=== PATIENT | female | born 1970 ===

== ENCOUNTER 2025-06-02 09:21 | Inpatient (IN) | payer OTHER ==
[~2025-06-02] VITALS: Ht 121.9 cm; Wt 72.6 kg
[2025-06-02 09:52] LABS: BASO % 1.0 % (0.1-1.2); EOS # 0.09 (0.04-0.54); EOS % 1.4 % (0.7-7.0); LYMPH # 2.00 (1.18-3.74); LYMPH % 32.1 % (19.3-53.1); MEAN PLATELET VOLUME 11.20 fl (9.4-12.4); MONO # 0.50 (0.24-0.82); MONO % 8.0 % (4.7-12.5); NEUT # 3.58 (1.56-6.13); NEUT % 57.3 % (34.0-71.1); RED CELL DISTRIBUTION WIDTH 13.4 % (11.6-14.4)
[2025-06-02 10:06] LABS: URINE APPEARANCE Clear; URINE BILIRRUBIN Negative (NEGATIVE); URINE BLOOD Negative; URINE COLOR Yellow; URINE GLUCOSE Negative (NEGATIVE); URINE KETONE Negative (NEGATIVE); URINE LEUKOCYTE Small; URINE NITRATE Negative; URINE PROTEIN Negative (NEGATIVE); URINE UROBILINOGEN 0.2 E.U./dl
[2025-06-02 10:08] LABS: URINE BACTERIA 29.9 uL (0.0-1933); URINE EPITHELIAL CELLS 3.6 uL (0.0-38.8); URINE RBC 4.6 uL (0.0-20.8); URINE WBC 8.1 uL (0.0-23.2)
[2025-06-02 10:33] LABS: INR 0.99
[2025-06-02 10:39] LABS: URINE CAST 0.00 uL (0.0-1.40)
[2025-06-02 10:44] LABS: ALT/SGPT 40.0 U/L (12-78); AST/SGOT 24.0 U/L (15-37); BILIRUBIN TOTAL 0.92 mg/dL (0.3-1.2); BUN CREA RATIO 11.0 (7.0-25.0); CREATININE SERUM 0.83 mg/dL (0.55-1.02); GFR 71.37; GLOBULINA 4.1 G/DL (2.4-3.5); GLUCOSE FASTING 98.0 mg/dL (65-100); OSMOLALITY SERUM 285.0 MOSM/KG (275-295)
[2025-06-02] MEDS ORDERED: PEPCID AC20 MG (11:22)
[2025-06-02] MEDS ORDERED: TOPROL XL50 M1 PO (11:22)
[2025-06-02] MEDS ORDERED: PROTONIX40 M1 PO (11:23)
[2025-06-09] MEDS ORDERED: DEXAMETHASONE SODIUM PHOSPHATE 4 MG/ML VIAL ONE (14:23)
[2025-06-09] MEDS ORDERED: ONDANSETRON HCL 2 MG/ML VIAL IV PRN (16:15)
[2025-06-09] MEDS ORDERED: ENALAPRILAT DIHYDRATE 1.25 MG/ML VIAL IV PRN (16:15)
[2025-06-09] MEDS ORDERED: MORPHINE SULFATE 4 MG/ML VIAL IV ONE ×2 (16:40→17:10)
[2025-06-09] MEDS ORDERED: CYCLOBENZAPRINE HCL 5 MG TABLET PO SCH (17:00)
[2025-06-09] MEDS ORDERED: LIDOCAINE HCL 30 ML,MAG HYDROX/ALUMINUM HYD/SIMETH 30 ML,DIPHENHYDRAMINE HCL 75 MG MM SCH (17:00)
[2025-06-09] MEDS ORDERED: ACETAMINOPHEN 500 MG GEL..CAP PO SCH (17:00)
[2025-06-09] MEDS ORDERED: TRAMADOL HCL 50 MG TABLET PO SCH (17:00)
[2025-06-09] MEDS ORDERED: ENALAPRILAT DIHYDRATE 1.25 MG/ML VIAL IV ONE (18:29)
[2025-06-09 18:55] VITALS: BP 151/82; O2SAT 95
[2025-06-09] MEDS ORDERED: Calcium Carbonate 1 TAB TABLET PO SCH (21:00)
[2025-06-09] MEDS ORDERED: PANTOPRAZOLE SODIUM 40 MG/VIAL VIAL IV PUSH SCH (21:00)
[2025-06-10] VITALS: BP 134/76; O2SAT 94
[2025-06-10 08:00] VITALS: BP 137/73; O2SAT 95
[2025-06-11] MEDS ORDERED: LEVOTHYROXINE SODIUM 112 MCG TABLET PO SCH (06:00)
== END 2025-06-10 15:25 | disposition home or self-care (01) | DRG 627 ==
LOC: SURH 06-09 09:45 → O/R 06-09 12:00 → SURH 06-09 12:00
PROVIDERS: ADMIT Surgery; ATTEND Surgery
PROC: 0GTK0ZZ Resection of Thyroid Gland, Open Approach (ICD-10-PCS; principal; 2025-06-09 14:00)
DX: E04.2 Nontoxic multinodular goiter (principal)